=== PATIENT | male | born 1965 | race Two or more races ===

== ENCOUNTER → 2019-04-28 | Outpatient (CLI) | payer BC ==
--- NOTE | 2019-04-29 08:11 | KCIC ---
CHEST PA LATERAL History: Cough. Smoker Comparison: None. Findings: No consolidation or pleural effusion. Normal heart size. Impression: 1. No acute cardiopulmonary process. Electronically signed by: Pramod Mo DO (04/29/2019 8:08 AM) [facility]
== END | disposition home or self-care (01) ==
LOC: KCIC 10:07
PROVIDERS: ATTEND Nurse Practitioner Family
DX: R05 Cough (principal); Z87.891 Personal history of nicotine dependence
CPT/HCPCS: 71046

== ENCOUNTER → 2019-05-19 | Outpatient (CLI) | payer BC ==
--- NOTE | 2019-05-19 09:16 | KCIC ---
Exam: Right Upper Quadrant Ultrasound 05/19/2019 8:00 AM Indication: Elevated LFTs Technique: Multiple realtime grayscale sonographic images were obtained over the abdomen. Static images were submitted for interpretation. Comparisons: None Findings: The aorta and pancreas are poorly visualized. The liver is normal in size measuring 16 cm longitudinally. There is a normal hepatic echotexture. No focal lesions are identified. The gallbladder is nondistended. There is no evidence for cholelithiasis. There is no wall thickening, or pericholecystic fluid. The common bile duct is within normal limits measuring 2 mm in diameter. The Right kidney is normal in size measuring 10.2cm. There is no evidence for mass, nephrolithiasis, or hydronephrosis No ascites is identified Impression: Pancreas is poorly visualized. Otherwise unremarkable sonographic appearance of the right upper quadrant Electronically signed by: Kody Evangelista MD (05/19/2019 9:13 AM) [id number]
== END | disposition home or self-care (01) ==
LOC: KCIC US 07:52
PROVIDERS: ATTEND Nurse Practitioner Family
DX: R74.8 Abnormal levels of other serum enzymes (principal)
CPT/HCPCS: 76705

== ENCOUNTER → 2019-05-26 | Outpatient (CLI) | payer BC ==
--- NOTE | 2019-05-26 12:51 | RAD ---
MR#: [id number] Date of Study: 05/26/2019 Ordering Physician: LESLIE AGUERO, Referring Physician: LESLIE AGUERO, Tech: WILSON Robertson, RDMS, RTR APPROVED REPORT Patient Location: OUT-PATIENT Indications Rest Pain: Risk Factors Smoking VELOCITY AND DOPPLER WAVEFORM ANALYSIS RIGHT cm/secWaveformSeverity LEFT cm/secWaveform Severity pCFA 137.7TriphasicpCFA 93.5Triphasic Prof Fem Art. 84.5Prof Fem Art. 61.3 Fem Art Prox. 92.5TriphasicFem Art Prox. 67.1Biphasic Fem Art Mid. 124.9TriphasicFem Art Mid. 81.6Triphasic Fem Art Dist. 72.3TriphasicFem Art Dist. 58.4Triphasic Pop Art(Fossa) 83.1TriphasicPop Art(AK) 55.1Triphasic POSITION CLASSIFICATION SPECIALIST Dist. 104.1TriphasicPTA Dist. 82.3Triphasic Per Art Dist.63.6TriphasicPer Art Dist.59.2Triphasic TRACI Dist. 66.8TriphasicATA Dist. 54.6Triphasic DPA 61BiphasicDPA 52Biphasic Findings Brown scale images of the bilateral lower extremity arterial vessels reveals mild diffuse irregulariti es. No focal high grade stenosis noted by velocity criteria, color doppler or spectral images. There is three vessel run-off bilaterally. Critical Notification Critical Value: No <Conclusion> No significant lower extremity arterial disease. Signed by : Enrique Shea, Electronically Approved : 05/26/2019 12:51:15
--- NOTE | 2019-05-26 13:04 | RAD ---
MR#: [id number] Date of Study: 05/26/2019 Ordering Physician: LESLIE AGUERO, Referring Physician: LESLIE AGUERO, Tech: WILSON Robertson, RDMS, RTR APPROVED REPORT Patient Location : OUT-PATIENT Indications Lower Extremity Pain : SMOKER Findings Grayscale images of the bilateral saphenofemoral junctions are grossly unremarkable The bilateral greater saphenous veins do not reveal any obvious evidence of thrombus and do not show any significant reflux. The left lesser saphenous vein does not show any evidence of thrombus and there is no evidence of ref lux. On the right lesser saphenous vein there is a chronic appearing thrombus there appears to be occlusiv e. This thrombus extends to the saphenous popliteal junction. Color Doppler in the popliteal vein is unremarkable. Critical Notification Critical Value: No <Conclusion> 1. No evidence of reflux in the bilateral greater saphenous veins and the left lesser saphenous vein 2. Chronic thrombus that appears to be occlusive in the right lesser saphenous vein extending to the saphenous popliteal junction. Signed by : Enrique Shea, Electronically Approved : 05/26/2019 13:03:46
--- NOTE | 2019-05-26 14:53 | CARD ---
MR#: [id number] Date of Study: 05/26/2019 Ordering Physician: LESLIE AGUERO, Referring Physician: Chon YOUNG: Virginia Harp APPROVED REPORT EXAM: Two-dimensional and M-mode echocardiogram with Doppler and color Doppler. Other Information Quality : AverageHR: 71bpm INDICATION RHODES 2D DIMENSIONS RVDd2.4 (2.9-3.5cm)Left Atrium(2D)3.7 (1.6-4.0cm) IVSd0.9 (0.7-1.1cm)Aortic Root(2D)2.2 (2.0-3.7cm) LVDd4.5 (3.9-5.9cm)LVOT Diameter2.0 (1.8-2.4cm) PWd0.6 (0.7-1.1cm)LVDs2.2 (2.5-4.0cm) FS (%) 52.5 %SV79.0 ml LVEF(%)83.6 (>50%) Aortic Valve AoV Peak Osmin.139.7cm/sAoV VTI26.4cm AO Peak GR.7.8mmHgLVOT Peak Osmin.78.9cm/s AO Mean GR.5mmHgAVA (VMAX)1.69cm2 Mitral Valve MV E Nddymfko38.4cm/sMV E Peak Gr.4mmHg MV DECEL [id number] A Ahxbigpo99.1cm/s MV E Mean Gr.2mmHgE/A Ratio1.6 Pulmonary Valve PV Peak Djhcjpsd76.5cm/s Tricuspid Valve RAP [id number] Pulmonary Vein S1 Gwnhfjty33.3cm/sD2 Zemqnofs73.1cm/s LEFT VENTRICLE The left ventricle is normal size. There is normal left ventricular wall thickness. The left ventricu lar systolic function is normal and the ejection fraction is within normal range. The Ejection Fracti on is 60-65%. There is normal LV segmental wall motion. Transmitral Doppler flow pattern is normal fo r age. RIGHT VENTRICLE The right ventricle is normal size. The right ventricular systolic function is normal. ATRIA The left atrium size is normal. The right atrium size is normal. The interatrial septum is intact wit h no evidence for an atrial septal defect or patent foramen ovale as noted on 2-D or Doppler imaging. AORTIC VALVE The aortic valve is normal in structure and function. Doppler and Color Flow revealed no significant aortic regurgitation. There is no significant aortic valvular stenosis. MITRAL VALVE The mitral valve is thickened but opens well. There is no evidence of mitral valve prolapse. There is no mitral valve stenosis. Doppler and Color-flow revealed trace mitral regurgitation. TRICUSPID VALVE The tricuspid valve is normal in structure and function. Doppler and Color Flow revealed trace tricus pid regurgitation. There is no tricuspid valve stenosis. PULMONIC VALVE The pulmonic valve is not well visualized. Doppler and Color Flow revealed no pulmonic valvular regur gitation. There is no pulmonic valvular stenosis. GREAT VESSELS The aortic root is normal in size. The ascending aorta is normal in size. The IVC is normal in size a nd collapses >50% with inspiration. PERICARDIAL EFFUSION There is no pleural effusion. There is no evidence of significant pericardial effusion. Critical Notification Critical Value: No <Conclusion> The left ventricular systolic function is normal and the ejection fraction is within normal range. Th e Ejection Fraction is 60-65%. There is normal LV segmental wall motion. Signed by : Enrique Shea, Electronically Approved : 05/26/2019 14:53:16
== END | disposition home or self-care (01) ==
LOC: US 10:03
PROVIDERS: ATTEND Internal Medicine Cardiovascular Disease
DX: I82.811 Embolism and thrombosis of superficial veins of right lower extremity (principal); R06.09 Other forms of dyspnea; F17.210 Nicotine dependence, cigarettes, uncomplicated
CPT/HCPCS: 93306; 93925; 93970

== ENCOUNTER → 2019-07-07 | Outpatient (CLI) | payer BC ==
[~2019-07-07] MED LIST: ACET325T9 PO; ALBU2.5V8 NEB; APIX5TAB PO; DOCU-153 PO; Folic Acid PO; HYDR-2761 PO; MULT1TAB90 PO; PANT40TA77 PO
--- NOTE | 2019-07-07 11:26 | KCIC ---
Examination: VENOUS LOWER EXTREMITY LEFT History: Left calf pain for past 2 weeks Comparison/Correlation: None Findings: Duplex ultrasound examination of the left lower venous system was performed. Compression imaging and augmentation are utilized. The left common femoral vein is patent. Partially occlusive thrombus involves the left superficial femoral vein at the proximal aspect. Mid to distal superficial femoral vein as occlusive thrombus as does the popliteal vein. Flow is seen involving the proximal posterior tibial veins. Partially occlusive thrombus is noted involving the peroneal veins. Distal posterior tibial veins are compressible without evidence of thrombus. Greater saphenous vein is patent. Impression: Occlusive thrombus involving the mid to distal left superficial vein and popliteal vein. Partial thrombus involving the superficial vein proximally as well as peroneal veins. 07/07/2019 at 11:21 AM results were reported to the referring provider Thao Mcmanus APRN. Electronically signed by: Daniel Ricci MD (07/07/2019 11:23 AM) [facility]
== END | disposition home or self-care (01) ==
LOC: KCIC US 10:39
PROVIDERS: ATTEND Nurse Practitioner Family
DX: I82.812 Embolism and thrombosis of superficial veins of left lower extremity (principal); I82.432 Acute embolism and thrombosis of left popliteal vein; I82.452 Acute embolism and thrombosis of left peroneal vein
CPT/HCPCS: 93971